=== PATIENT | female | born 1990 | race Caucasian/White ===

== ENCOUNTER 2020-08-03 03:31 | Emergency (ER) | payer OTHER ==
[2020-08-03 03:51] VITALS: BP 140/92; TEMP 99.3; BMI 23.6
[2020-08-03 05:33] VITALS: PULSE 90
== END 2020-08-03 05:33 | disposition home or self-care (01) ==
LOC: JER 03:31
DX: M79.10 Myalgia, unspecified site (principal)
CPT/HCPCS: 71046-TC-FY; 93005; 93010; 99284-25; C9803; U0003